=== PATIENT | male | born 1990 | race Two or more races ===

== ENCOUNTER 2023-01-08 16:49 | Emergency (ER) | payer BC, MEDICAID ==
[~2023-01-08] VITALS: Ht 167.6 cm; Wt 104.3 kg
[2023-01-08] MEDS ORDERED: IBUP-1957 PO (18:29)
[2023-01-08 18:58] VITALS: BP 131/77; TEMP 97.8; O2SAT 100
== END 2023-01-08 18:58 | disposition home or self-care (01) ==
LOC: ER 16:52
DX: M25.572 Pain in left ankle and joints of left foot (principal); Z60.2 Problems related to living alone; X58.XXXA Exposure to other specified factors, initial encounter; Y93.66 Activity, soccer; Y92.89 Other specified places as the place of occurrence of the external cause; Y99.8 Other external cause status
CPT/HCPCS: 73610-TC